=== PATIENT | male | born 1975 | race Caucasian/White ===

== ENCOUNTER → 2016-09-22 | Outpatient (CLI) | payer BC ==
[~2016-09-22] MED LIST: Gadobutrol 10 mMOL/10 ML SDV IVPUSH STA; Iopamidol 612 MG/ML 50 ML SDV IARTIC STA
--- NOTE | 2016-09-22 14:41 | CR ---
EXAMINATION: Fluoro guided right shoulder arthrogram. HISTORY: Shoulder pain. TECHNIQUE/PROCEDURE: Written informed consent was obtained from the patient . The site of the anterior rotator interval is marked under fluoroscopy. Under aseptic conditions usin g 1% lidocaine as local anesthesia 22-gauge spinal needle was introduced into the joint space. A sma ll amount of contrast test dose was injected which freely flowed into the joint space. Afterwards, 15 cc of cocktail consisting of saline, gadolinium and local lidocaine including CT contrast was adm inistered without difficulty. There was no passage of the contrast into the subacromial space. Most of the contrast is seen within the joint space and sub coracoid bursal region. IMPRESSION: Successful Fluoro guided right shoulder arthrogram without evidence for high-grade rotat or cuff tear.
--- NOTE | 2016-09-22 15:10 | MR ---
EXAMINATION: MRI arthrogram of the right shoulder HISTORY: Tear COMPARISON: Arthrogram from the same day TECHNIQUE: Multiplanar and multisequence images obtained of the right shoulder following the intra-a rticular administration of diluted Gadavist. FINDINGS: The acromion is minimally, and varix. The acromioclavicular joint. Normal. There is a smal l ossification noted inferior to the coracoid process. There is a small partial thickness near full- thickness tear of the supraspinatus tendon at the footplate. The infraspinatus and teres minor tendo ns appear intact. The long head biceps tendon is present within the bicipital groove. The subscapula ris tendon appears grossly intact. There is a slight prominence of the middle glenohumeral ligament overlying the anterior labrum without a definite labral tear. Mild subcortical cystic changes noted at the rotator cuff insertions. Inferior glenohumeral ligament appears intact. No significant muscul ar atrophy. IMPRESSION: 1. Small Partial, near full-thickness tear of the supraspinatus tendon at the footplate. 2. Small ossific density noted inferior to the coracoid process, possibly calcific tendinitis along the biceps tendon. 3. Mild glenohumeral osteoarthritic changes.
== END ==
LOC: MW.DI 10:18
PROVIDERS: ATTEND Physician Assistant
DX: M75.101 Unspecified rotator cuff tear or rupture of right shoulder, not specified as traumatic (principal); M25.511 Pain in right shoulder; M75.111 Incomplete rotator cuff tear or rupture of right shoulder, not specified as traumatic; M19.011 Primary osteoarthritis, right shoulder
CPT/HCPCS: 23350; 73223; 77002; A9585; Q9967

== ENCOUNTER → 2016-10-13 | Outpatient (CLI) | payer BC ==
--- NOTE | 2016-10-13 14:15 | CR ---
EXAMINATION: Right shoulder HISTORY: Pain COMPARISON: MRI dated 09/22/2016 TECHNIQUE: 3 views FINDINGS/IMPRESSION: There is no acute osseous abnormality, dislocation, or fracture. Bone mineraliz ation and joint spaces appear normal. There is a well-corticated calcific density adjacent to the co ronoid process.
== END ==
LOC: MW.CHORTHO 10:26
PROVIDERS: ATTEND Orthopaedic Surgery
DX: M25.511 Pain in right shoulder (principal)
CPT/HCPCS: 73030-26-RT; 73030-RT